=== PATIENT | female | born 1980 | race Caucasian/White ===

== ENCOUNTER → 2016-12-14 | Outpatient (CLI) | payer OTHER ==
[2016-12-16 15:08] LABS: ANTIPROTEINASE 3 (PR-3) ABS <3.5 U/mL (0.0-3.5)
== END | disposition home or self-care (01) ==
LOC: LAB 11:11
PROVIDERS: Family Medicine
DX: K52.9 Noninfective gastroenteritis and colitis, unspecified (principal); R30.0 Dysuria

== ENCOUNTER → 2018-04-11 | Outpatient (CLI) | payer OTHER | END | disposition home or self-care (01) | LOC: ORTHO 01:07 | DX: M25.541 Pain in joints of right hand (principal) ==